=== PATIENT | female | born 1960 | race Caucasian/White ===

== ENCOUNTER 2021-08-15 07:34 | Day surgery (SDC) | payer OTHER, SELFPAY ==
[~2021-08-15] VITALS: Ht 162.6 cm; Wt 107.5 kg
[2021-08-15] MEDS ORDERED: MEPERIDINE 100 MG INJ. 100 MG/ML VIAL ONE (07:41)
[2021-08-15] MEDS ORDERED: SIMETHICONE 40 MG/0.6 ML ML ONE (07:41)
[2021-08-15] MEDS: MIDAZOLAM HCL 5 MG/5 ML VIAL ONE ×2 (09:16→09:18)
[2021-08-15 13:19] VITALS: BP_SYST 120
== END 2021-08-15 11:10 | disposition home or self-care (01) ==
LOC: SDS 07:34 → SMU 07:36 → SDS 11:10
PROVIDERS: ATTEND Internal Medicine Gastroenterology
DX: Z12.11 Encounter for screening for malignant neoplasm of colon (principal); D12.3 Benign neoplasm of transverse colon; K57.30 Diverticulosis of large intestine without perforation or abscess without bleeding; K64.8 Other hemorrhoids; R19.4 Change in bowel habit; E11.9 Type 2 diabetes mellitus without complications; I10 Essential (primary) hypertension; Z88.0 Allergy status to penicillin; K80.20 Calculus of gallbladder without cholecystitis without obstruction; K43.9 Ventral hernia without obstruction or gangrene; Z79.899 Other long term (current) drug therapy
CPT/HCPCS: 36415; 45380; 45385; 82962; 87426; 88305; 99152; G0378; J2175; J2250

== ENCOUNTER 2022-06-04 05:26 | Inpatient (IN) | payer OTHER ==
[~2022-06-04] VITALS: Ht 162.6 cm; Wt 108.9 kg
[2022-06-04 05:35] VITALS: BP_SYST 137
[2022-06-04] MEDS ORDERED: CLINDAMYCIN PHOS 600 MG/ D5W 50 ML PREMIX IV ONE (07:00)
== END 2022-06-04 07:50 | disposition home or self-care (01) | DRG 445 ==
LOC: SMU 05:26
PROVIDERS: ADMIT Colon & Rectal Surgery; ATTEND Colon & Rectal Surgery
DX: K80.10 Calculus of gallbladder with chronic cholecystitis without obstruction (principal); K43.0 Incisional hernia with obstruction, without gangrene; Z68.41 Body mass index [BMI] 40.0-44.9, adult; I48.91 Unspecified atrial fibrillation; F41.9 Anxiety disorder, unspecified; M17.0 Bilateral primary osteoarthritis of knee; E66.01 Morbid (severe) obesity due to excess calories; I12.9 Hypertensive chronic kidney disease with stage 1 through stage 4 chronic kidney disease, or unspecified chronic kidney disease; E11.22 Type 2 diabetes mellitus with diabetic chronic kidney disease; N18.9 Chronic kidney disease, unspecified; Z88.0 Allergy status to penicillin; Z95.810 Presence of automatic (implantable) cardiac defibrillator; E78.00 Pure hypercholesterolemia, unspecified; Z92.21 Personal history of antineoplastic chemotherapy; Z90.710 Acquired absence of both cervix and uterus; Z53.8 Procedure and treatment not carried out for other reasons
CPT/HCPCS: 36415; 82962; 87081; J3490